=== PATIENT | female | born 1960 | race Caucasian/White ===

== ENCOUNTER 2018-10-07 15:49 | Emergency (ER) | payer SELFPAY ==
[~2018-10-07] VITALS: Ht 152.4 cm; Wt 70.3 kg
[2018-10-07] MEDS ORDERED: ADVIL200 MG PO (16:04)
== END 2018-10-07 16:35 | disposition home or self-care (01) ==
LOC: ED 15:49
DX: H11.32 Conjunctival hemorrhage, left eye (principal); I10 Essential (primary) hypertension; F17.200 Nicotine dependence, unspecified, uncomplicated
CPT/HCPCS: 99283